=== PATIENT | female | born 1965 | race Caucasian/White ===

== ENCOUNTER 2017-05-28 10:49 | Inpatient (IN) | payer MEDICARE, BC ==
--- NOTE | 2017-05-28 14:04 | ED ---
General Adult HPI - General Chief complaint: Back Pain/Injury Stated complaint: Pain all over Time Seen by Provider: 05/28/17 13:36 Source: patient, RN notes reviewed Mode of arrival: wheelchair Limitations: no limitations - History of Present Illness Initial comments: This is a 51-year-old female who presents to the emergency department with chief complaint of "all over pain." Patient has an extensive medical history with generalized chronic pain. Patient is seen by family doctor Dr. Gibbs. Patient was taking methadone and [place] and was recently taken off of these medications. She reports an increase of pain since stopping the methadone approximately one month ago. Patient complains of generalized all over pain, but states her legs are the worst and she has difficulty walking. She also complains of a headache for the last 3 days. Patient was given a prescription for tramadol when she followed up with her primary care provider a few days ago. Patient states that this is not working for her. states that he feels his needs to be hospitalized to get to the bottom of what's causing her pain and that he would like a referral to pain management clinic. Denies shortness of breath, nausea or vomiting, diarrhea or constipation. Patient began to complain of intermittent chest pain for the last couple of days. She states it is sharp and on the left side of her chest. Patient states she is nervous she is having another [place]. - Related Data Home Medications Medication Instructions Recorded Confirmed ALPRAZolam [Xanax] 0.5 mg PO BID 12/28/13 05/28/17 Allopurinol [Zyloprim] 300 mg PO DAILY 12/28/13 05/28/17 Aspirin 81 mg PO DAILY 12/28/13 05/28/17 Cyclobenzaprine [Flexeril] 10 mg PO HS 12/28/13 05/28/17 Digoxin [Lanoxin] 125 mcg PO DAILY 12/28/13 05/28/17 INSULIN LISPRO (humaLOG) [humaLOG] 30 units SQ AC-TID PRN 12/28/13 05/28/17 Insulin Glargine [Lantus] 60 unit SQ HS 12/28/13 05/28/17 Magnesium Chloride [Slow-Mag] 64 mg PO BID 12/28/13 05/28/17 Pregabalin [Lyrica] 300 mg PO BID 12/28/13 05/28/17 traZODone HCL [Desyrel] 100 mg PO HS 12/28/13 05/28/17 Carvedilol [Coreg] 12.5 mg PO BID 01/22/14 05/28/17 Allopurinol [Zyloprim] 300 mg PO DAILY 05/28/17 05/28/17 Bumetanide [BUMEX] 3 mg PO BID 05/28/17 05/28/17 DULoxetine HCL [Cymbalta] 60 mg PO DAILY 05/28/17 05/28/17 Hydrochlorothiazide [Hydrodiuril] 25 mg PO DAILY 05/28/17 05/28/17 Ondansetron HCl [Zofran] 8 mg PO BID PRN 05/28/17 05/28/17 Potassium Chloride [K-Tab ER] 10 meq PO BID 05/28/17 05/28/17 Spironolactone [Aldactone] 25 mg PO DAILY 05/28/17 05/28/17 glyBURIDE/METFORMIN HCL 1 each PO DAILY 05/28/17 05/28/17 [Glucovance 5-500 mg Tablet] Previous Rx's Medication Instructions Recorded Warfarin [Coumadin] 5 mg PO DAILY@1800 #7 tab 06/29/14 Allergies Allergy/AdvReac Type Severity Reaction Status Date / Time atorvastatin calcium Allergy Unknown Verified 05/28/17 10:56 [From Lipitor] baclofen Allergy Unknown Verified 05/28/17 10:56 gentamicin [Gentamicin] Allergy Unknown Verified 05/28/17 10:56 Review of Systems ROS Statement: Those systems with pertinent positive or pertinent negative responses have been documented in the HPI. ROS Other: All systems not noted in ROS Statement are negative. Past Medical History Past Medical History: Atrial Fibrillation, Asthma, Coronary Artery Disease (CAD) , Heart Failure, CVA/TIA, Diabetes Mellitus, Fibromyalgia, GI Bleed, Hyperlipidemia, Hypertension, Myocardial Infarction (MO), Osteoarthritis (OA), Pneumonia, Renal Disease, Respiratory Disorder Additional Past Medical History / Comment(s): Peripheral neuropathy, chronic pain Last Myocardial Infarction Date:: 2006 History of Any Multi-Drug Resistant Organisms: None Reported, C-DIFF Date of last positivie culture/infection: 2011 MDRO Source:: STOOL Past Surgical History: AICD, Cardiac Valve Replacement, Coronary Bypass/CABG, Heart Catheterization With Stent, Pacemaker Additional Past Surgical History / Comment(s): Gastric stimulator placed Past Anesthesia/Blood Transfusion Reactions: Previous Problems w/ Anesthesia Additional Past Anesthesia/Blood Transfusion Reaction / Comment(s): HEART ACTED UP Date of Last Stent Placement:: 2006 Type of Cardiac Device: Permanent Pacemaker, AICD Device Placement Date:: 2013 Past Psychological History: Anxiety, Depression Smoking Status: Never smoker Past Alcohol Use History: None Reported Past Drug Use History: None Reported General Exam - General Exam Comments Initial Comments: General: Awake and alert, well-developed; in no apparent distress. Moaning and groaning throughout examination. Uncooperative. HEENT: Head atraumatic, normocephalic. Pupils are equal, round and reactive to light. Extraocular movements intact. Oropharynx moist without erythema or exudate. Neck: Supple. Normal ROM. Cardiovascular: Regular rate and rhythm. No murmurs, rubs or gallops. Chest symmetrical. Respiratory: Lungs clear to auscultation bilaterally. No wheezes, rales or rhonchi. Normal respiratory effort with no use of accessory muscles. Abdomen: Soft, non-distended. Tenderness on palpation of the epigastric region. No rigidity, rebound or guarding. Normal bowel sounds in all 4 quadrants. Well-healed scar noted for gastric stimulator. Musculoskeletal: Normal active range of motion of bilateral upper and lower extremities. Skin: [place], warm and dry without rashes or lesions. Neurological: Alert and oriented x3. CN II-XII grossly intact. Speech is fluent and answers are appropriate. No focal neuro deficits. Limitations: no limitations Course Vital Signs 05/28/17 05/28/17 05/28/17 10:51 15:00 15:58 Temperature 98.5 F Pulse Rate 89 89 89 Respiratory 16 20 20 Rate Blood Pressure 118/70 138/56 121/69 O2 Sat by Pulse 95 95 96 Oximetry EKG Findings - EKG Comments: EKG Findings:: EKG at 14:10:25. Electronic ventricular pacemaker. Ventricular rate 92 bpm, DC interval 212, QRS duration 122, QT/QTC 396/489. Medical Decision Making - Medical Decision Making This is a 51-year-old female who presented to the emergency department with chief complaint of chronic generalized pain. Patient recently came off of methadone and her primary care provider is no longer prescribe any narcotics. I explained to patient that we do not prescribe narcotics for chronic pain in the emergency department. I educated family that they are to receive a referral to pain management from their primary care provider. Upon discussing this, patient complained of intermittent chest pains. An EKG was obtained, however unable to interpret due to pacemaker. A full cardiac workup was performed. Patient has acute kidney injury and an elevated troponin at 0.129. BNP was within normal limits. Chest x-ray revealed mild central venous congestion. Patient will be admitted to the hospital under Dr. Norton with diagnoses of elevated troponin, chest pain and acute kidney injury. Patient was made aware of this and she is in agreement. All questions were answered. - Lab Data Result diagrams: 05/28/17 14:51 05/28/17 14:51 Lab Results 05/28/17 05/28/17 05/28/17 Range/Units 14:51 14:51 14:51 WBC 11.7 H (3.8-10.6) k/uL RBC 3.57 L (3.80-5.40) m/uL Hgb 11.0 L (11.4-16.0) gm/dL Hct 33.4 L (34.0-46.0) % MCV 93.7 (80.0-100.0) fL MCH 30.9 (25.0-35.0) pg MCHC 33.0 (31.0-37.0) g/dL RDW 20.4 H (11.5-15.5) % Plt Count 174 (150-450) k/uL Neutrophils % 76 % Lymphocytes % 10 % Monocytes % 5 % Eosinophils % 4 % Basophils % 1 % Neutrophils # 8.9 H (1.3-7.7) k/uL Lymphocytes # 1.2 (1.0-4.8) k/uL Monocytes # 0.6 (0-1.0) k/uL Eosinophils # 0.4 (0-0.7) k/uL Basophils # 0.1 (0-0.2) k/uL Poikilocytosis Slight Anisocytosis Moderate Macrocytosis Slight PT (9.0-12.0) sec INR (<1.2) APTT (22.0-30.0) sec Sodium 139 (137-145) mmol/L Potassium 3.7 (3.5-5.1) mmol/L Chloride 93 L (98-107) mmol/L Carbon Dioxide 28 (22-30) mmol/L Anion Gap 18 mmol/L BUN 67 H (7-17) mg/dL Creatinine 1.60 H (0.52-1.04) mg/dL Est GFR (MDRD) Af Amer 41 (>60 ml/min/1.73 sqM) Est GFR (MDRD) Non-Af 34 (>60 ml/min/1.73 sqM) Glucose 162 H (74-99) mg/dL Calcium 9.6 (8.4-10.2) mg/dL Magnesium 1.3 L (1.6-2.3) mg/dL Total Bilirubin 0.9 (0.2-1.3) mg/dL AST 53 H (14-36) U/L ALT 82 H (9-52) U/L Alkaline Phosphatase 106 (38-126) U/L Total Creatine Kinase 36 (30-135) U/L CK-MB (CK-2) 1.5 (0.0-2.4) ng/mL CK-MB (CK-2) Rel Index 4.2 Troponin I 0.129 H* (0.000-0.034) ng/mL NT-Pro-B Natriuret Pep pg/mL Total Protein 7.8 (6.3-8.2) g/dL Albumin 4.5 (3.5-5.0) g/dL 05/28/17 05/28/17 Range/Units 14:51 14:51 WBC (3.8-10.6) k/uL RBC (3.80-5.40) m/uL Hgb (11.4-16.0) gm/dL Hct (34.0-46.0) % MCV (80.0-100.0) fL MCH (25.0-35.0) pg MCHC (31.0-37.0) g/dL RDW (11.5-15.5) % Plt Count (150-450) k/uL Neutrophils % % Lymphocytes % % Monocytes % % Eosinophils % % Basophils % % Neutrophils # (1.3-7.7) k/uL Lymphocytes # (1.0-4.8) k/uL Monocytes # (0-1.0) k/uL Eosinophils # (0-0.7) k/uL Basophils # (0-0.2) k/uL Poikilocytosis Anisocytosis Macrocytosis PT 11.1 (9.0-12.0) sec INR 1.2 H (<1.2) APTT 25.1 (22.0-30.0) sec Sodium (137-145) mmol/L Potassium (3.5-5.1) mmol/L Chloride (98-107) mmol/L Carbon Dioxide (22-30) mmol/L Anion Gap mmol/L BUN (7-17) mg/dL Creatinine (0.52-1.04) mg/dL Est GFR (MDRD) Af Amer (>60 ml/min/1.73 sqM) Est GFR (MDRD) Non-Af (>60 ml/min/1.73 sqM) Glucose (74-99) mg/dL Calcium (8.4-10.2) mg/dL Magnesium (1.6-2.3) mg/dL Total Bilirubin (0.2-1.3) mg/dL AST (14-36) U/L ALT (9-52) U/L Alkaline Phosphatase (38-126) U/L Total Creatine Kinase (30-135) U/L CK-MB (CK-2) (0.0-2.4) ng/mL CK-MB (CK-2) Rel Index Troponin I (0.000-0.034) ng/mL NT-Pro-B Natriuret Pep 1930 pg/mL Total Protein (6.3-8.2) g/dL Albumin (3.5-5.0) g/dL - Radiology Data Radiology results: report reviewed Chest x-ray findings: The lungs are clear and there is no pneumothorax. Cardiac device and postsurgical changes are noted and there is mild central interstitial prominence. Tiny left pleural effusion is noted. Impression: Correlate for mild central venous congestion and tiny left pleural effusion. Disposition Clinical Impression: Elevated troponin, Chest pain, Chronic pain, Acute kidney injury Disposition: ADMITTED IP TO THIS [facility] Condition: Stable Referrals: Uvaldo Gibbs MD [Primary Care Provider] - 1-2 days Time of Disposition: 17:04
[2017-05-28] MEDS ORDERED: HYDROmorphone 1 MG/ML 1 ML SYRINGE IVP STA ×2 (14:25→18:09)
[2017-05-28 15:08] LABS: Anisocytosis Moderate; Basophils # (A) 0.1 k/uL (0-0.2); Basophils % (A) 1 %; Eosinophils # (A) 0.4 k/uL (0-0.7); Eosinophils % (A) 4 %; HCT 33.4 % (34.0-46.0); Lymphocytes # (A) 1.2 k/uL (1.0-4.8); Lymphocytes % (A) 10 %; MCH 30.9 pg (25.0-35.0); MCV 93.7 fL (80.0-100.0); Macrocytosis Slight; Mean Platelet Volume 9.4; Monocytes # (A) 0.6 k/uL (0-1.0); Monocytes % (A) 5 %; Neutrophils # (A) 8.9 k/uL (1.3-7.7); Neutrophils % (A) 76 %; Platelet Count 174 k/uL (150-450); Poikilocytosis Slight; RBC 3.57 m/uL (3.80-5.40); RDW 20.4 % (11.5-15.5); WBC 11.7 k/uL (3.8-10.6)
--- NOTE | 2017-05-28 15:18 | XR ---
EXAMINATION TYPE: XR chest 2V DATE OF EXAM: 05/28/2017 COMPARISON: 06/29/2014 TECHNIQUE: PA and lateral views submitted. HISTORY: Chest congestion FINDINGS: The lungs are clear and there is no pneumothorax. Cardiac device and postsurgical changes are noted and there is mild central interstitial prominence. Tiny left pleural effusion noted. IMPRESSION: 1. Correlate for mild central venous congestion and tiny left pleural effusion..
[2017-05-28 15:20] LABS: Albumin 4.5 g/dL (3.5-5.0); Calcium 9.6 mg/dL (8.4-10.2); Magnesium 1.3 mg/dL (1.6-2.3); Potassium 3.7 mmol/L (3.5-5.1); Total Bilirubin 0.9 mg/dL (0.2-1.3); Total Protein 7.8 g/dL (6.3-8.2)
[2017-05-28 15:40] LABS: Creatine Kinase MB 1.5 ng/mL (0.0-2.4); INR 1.2 (<1.2); Partial Thromboplastin Time 25.1 sec (22.0-30.0); Prothrombin Time 11.1 sec (9.0-12.0); Troponin I 0.129 ng/mL (0.000-0.034)
[2017-05-28] MEDS ORDERED: NITROGLYCERIN SL TABS 0.4 MG TAB SUBLINGUAL PRN ×2 (16:55→21:49)
[2017-05-28] MEDS ORDERED: SPIRONOLACTONE 25 MG TAB PO STA (18:02)
[2017-05-28] MEDS ORDERED: PANTOPRAZOLE 40 MG TABLET PO STA (18:03)
[2017-05-28 20:27] LABS: Glucose,Whole Blood 182 mg/dL (75-99)
[2017-05-28] MEDS ORDERED: BUMETANIDE 1 MG TAB PO SCH (21:00)
[2017-05-28] MEDS ORDERED: INSULIN LISPRO 30 UNIT SQ PRN (21:49)
[2017-05-28] MEDS ORDERED: INSULIN DETEMIR 100 UNIT/ML 10 ML VIAL SQ SCH ×2 (22:00→22:10)
[2017-05-28] MEDS ORDERED: SODIUM CHLORIDE 0.9% 1,000 ML IV SCH (22:00)
[2017-05-28] MEDS ORDERED: WARFARIN 2.5 MG TAB PO SCH (22:00)
[2017-05-28] MEDS ORDERED: traZODone HCL 100 MG TAB PO SCH (22:00)
[2017-05-28] MEDS ORDERED: PREGABALIN 100 MG CAP PO SCH (22:00)
[2017-05-28] MEDS ORDERED: CYCLOBENZAPRINE 10 MG TAB PO SCH (22:00)
[2017-05-28 22:19] LABS: Creatine Kinase MB 1.3 ng/mL (0.0-2.4)
[2017-05-28 22:21] LABS: Troponin I 0.12 ng/mL (0.000-0.034)
[2017-05-28 22:51] LABS: Glucose,Whole Blood 154 mg/dL (75-99)
[2017-05-28] MEDS: ALPRAZolam 0.5 MG TAB PO SCH (22:56)
--- NOTE | 2017-05-28 22:59 | HP ---
HISTORY AND PHYSICAL DATE OF ADMISSION: 05/28/2017. PRESENTING COMPLAINT: Chest pain. HISTORY OF PRESENTING COMPLAINT: Pleasant 51-year-old patient of Dr. Benson, with an extensive medical history. Patient's chronic stable medical conditions include diabetes mellitus type 2, peripheral neuropathy, chronic pain syndrome, gastric stimulator, permanent pacemaker, AICD, atrial fibrillation for which she is on Coumadin, congestive heart failure, hypertension, hyperlipidemia, coronary artery disease. For chronic pain, the patient had been on methadone and [place] which were stopped 6 days ago by family doctor, Dr. Gibbs. The patient has been aching all over the body. The patient, for 2 days, has been having sharp central chest pain, not related to exertion. Some shortness of breath and some dizziness. The pain does not does not radiate. Appetite had not been good. Patient is also having nausea. She was concerned about a cardiac cause, hence she presented to the ER. is at the bedside. The patient wanted IV Dilaudid. REVIEW OF SYSTEMS: CONSTITUTIONAL: Tired. HEENT: none. RESPIRATORY: As above. CARDIOVASCULAR: As above. GASTROINTESTINAL: None. GENITOURINARY: None. MUSCULOSKELETAL: Aches and pains diffusely. DERMATOLOGIC/HEMATOLOGIC/LYMPHATIC: None. PSYCHIATRY: Very anxious. NEUROLOGIC: Some numbness and tingling in and feet. PAST MEDICAL HISTORY: Atrial fibrillation, coronary artery disease, congestive heart failure, stroke, diabetes, fibromyalgia, GI bleed, hypertension, hyperlipidemia, osteoarthritis, chronic kidney disease, peripheral neuropathy, C diff. PAST SURGICAL HISTORY: AICD, cardiac valve replacement, coronary bypass, cardiac cath with stent, pacemaker, gastric stimulator, permanent pacemaker with AICD. PSYCH HISTORY: Anxiety and depression. SOCIAL HISTORY: Does not smoke or drink alcohol. . FAMILY HISTORY: Reviewed, not related to current presentation. HOME MEDICATIONS: 1. Desyrel 100 mg at bedtime. 2. Coumadin 2.5 mg Saturday, Saturday, , Saturday. 3. Aldactone 25 mg at bedtime. 4. Lyrica 200 mg at bedtime. 5. Melatonin 30 mg at bedtime. 6. Lantus 60 units subcu at bedtime. 7. Flexeril 10 mg p.o. at bedtime. 8. Coumadin 5 mg Saturday, Saturday and Saturday. 9. Reglan 10 mg p.o. daily p.r.n. 10.Nitrostat 0.4 sublingual every 5 p.r.n. 11.Glucophage 5/100 one tablet p.o. daily. 12.Lyrica 300 mg p.o. daily. 13.Potassium 10 mEq p.o. b.i.d. 14.Zofran 8 mg p.o. b.i.d. p.r.n. 15.Humalog 30 units subcu with meals t.i.d. 16.Hydrochlorothiazide 25 mg p.o. daily. 17.Digoxin 125 mcg p.o. daily. 18.Cymbalta 60 mg p.o. daily. 19.Bumex 6 mg p.o. b.i.d. 20.Aspirin 81 mg p.o. daily. 21.allopurinol 300 mg p.o. daily. 22.Xanax 0.5 mg p.o. b.i.d. ALLERGIES: Lipitor, baclofen, gentamicin. PHYSICAL EXAMINATION: Temperature 97.6, pulse 97, respiratory 20, blood pressure 120/65, pulse ox 97% on 2 L. GENERAL APPEARANCE: Well built, BMI 33.8, sitting up, anxious-appearing. HEENT: Conjunctivae are normal. Oral cavity normal. NECK: JVD not raised. Mass not palpable. RESPIRATORY: Effort normal. Lungs are clear. CARDIOVASCULAR: First and second sounds normal. No edema. ABDOMEN: Soft, nontender. Liver and spleen not palpable. LYMPHATIC: No lymph palpable in the neck, axillae or groin. PSYCHIATRY: Alert and oriented x3. Mood and affect anxious-appearing. NEUROLOGIC: Pupils equal. Cranial nerves grossly intact. Power and sensation grossly intact. INVESTIGATIONS: White count 11.7, hemoglobin 11.0, platelets 174,000, potassium 3.7, INR 1.2, BUN 67, creatinine 1.60, troponin 0.129. ProBNP 1930. The patient's BUN and creatinine, last in the hospital record were 29 and 0.99 back in 2015. ASSESSMENT: 1. Possible unstable angina in a patient with known coronary artery disease. Patient's 1st set of troponin is positive. Note this is in the setting of renal failure. 2. Chronic kidney disease, probably diabetic nephropathy and hypertensive nephrosclerosis. Cannot rule out an acute component. The patient is also on quite a bit of diuretics. 3. Chronic congestive heart failure from ischemic cardiomyopathy, ejection fraction not known. 4. Diabetes mellitus type 2, chronically on insulin causing peripheral neuropathy. 5. Chronic pain syndrome, diffuse. 6. Gastric stimulator. 7. Permanent pacemaker with AICD. 8. Persistent atrial fibrillation with paced rhythm, chronically on Coumadin. 9. Essential hypertension. 10.Hyperlipidemia. 11.Coronary artery disease, prior history of stent. 12.Anxiety, depression, not otherwise specified. PLAN: Home medications are resumed. Will temporarily hold off patient's diuretics and gently hydrate the patient. We will do a renal ultrasound. Order a 2-D echocardiogram. Both cardiology and Nephrology will be consulted. We will consult Dr. Kunz from Pain Management. In the meantime, patient will be prescribed [place]. I did talk at length to the patient and the importance of not using excessive pain medications for chronic conditions, especially in the setting of renal failure. The patient's fluid status will be evaluated in the morning. The patient has not been eating or drinking for last 2 days is probably also contributing to her being dry. The patient is on Coumadin. The Coumadin will be held until patient is seen by Cardiology. MMODL / IJN: [id number] /
[2017-05-28] MEDS ORDERED: Magnesium Replacement Protocol 1 EACH MISC MISCELLANE PRN (23:41)
[2017-05-28] MEDS: HYDROcodone/APAP 5-325MG 1 EACH TAB PO PRN (23:51)
[2017-05-29] MEDS: MAGNESIUM SULFATE-D5W PMX 1 GM in DEXTROSE/WATER 1 100ML.BAG IVPB SCH ×3 (00:53→06:42)
[2017-05-29] MEDS: CARVEDILOL 12.5 MG TAB PO SCH ×3 (00:54→17:37)
[2017-05-29 03:43] LABS: Calcium 10.1 mg/dL (8.4-10.2); Magnesium 1.9 mg/dL (1.6-2.3); Potassium 3.4 mmol/L (3.5-5.1)
[2017-05-29 03:54] LABS: Creatine Kinase MB 1.2 ng/mL (0.0-2.4)
[2017-05-29 04:02] LABS: Troponin I 0.105 ng/mL (0.000-0.034)
[2017-05-29] MEDS: HYDROcodone/APAP 5-325MG 1 EACH TAB PO PRN ×3 (04:12→12:18)
[2017-05-29 05:26] VITALS: BMI 32.6
[2017-05-29 05:50] LABS: Glucose,Whole Blood 171 mg/dL (75-99)
[2017-05-29] MEDS: ONDANSETRON 4 MG/2 ML VIAL IVP PRN ×2 (06:47→17:42)
[2017-05-29] MEDS ORDERED: glipiZIDE 10 MG TAB PO SCH (07:30)
[2017-05-29] MEDS ORDERED: metFORMIN 500 MG TAB PO SCH (07:30)
[2017-05-29] MEDS: ALPRAZolam 0.5 MG TAB PO SCH (08:12)
--- NOTE | 2017-05-29 08:59 | P.CRDCN ---
History of Present Illness Consult date: 05/29/17 Requesting physician: Bryan Norton Reason for Consult (text): Abnormal troponin Chief complaint: Generalized body aches and pains History of present illness: This is a 51-year-old female with history of severe ischemic cardiomyopathy status post AICD implantation, coronary artery disease with prior LAD stenting, prior mitral valve repair and resection of large aneurysm, hyperlipidemia, hypertension, diabetes, she is a nonsmoker. Patient has an extensive history of generalized chronic pain, she was taking methadone and [place] which was recently discontinued, she states she went through withdrawal for a couple of weeks, and started to develop generalized pain which started in her lower back and radiated through the entire body. Prior to her admission here, patient was given a prescription for tramadol which she states did nothing. Patient denies any overt chest discomfort. Asked x-ray on arrival revealed mild central venous congestion and a tiny left pleural effusion. EKG shows a V paced rhythm. Blood pressure 136/70 with a heart rate in the 80s, 96 % on 3 L. White blood cell count 11.7, hemoglobin 11, platelet count 174. Sodium 136, potassium 3.4, chloride 90, CO2 27. BUN 72, creatinine 1.5.Mag 1.3 on admission, 1.9 this morning. Ast 53. Alt 82. Troponins 0.12, 0.12, 0.11. BNP 1930. Triglycerides 1493, cholesterol 269, HDL 31. She has been on multiple statins, has been unable to take them because of muscle aching. At time of my examination this morning, patient continues to complain of generalized pain from head to toe, complaints of mild nausea. No chest pain. Cardiology consultation was requested because of abnormal troponin. Past Medical History Past Medical History: Atrial Fibrillation, Asthma, Coronary Artery Disease (CAD) , Chest Pain / Angina, Heart Failure, CVA/TIA, Diabetes Mellitus, Fibromyalgia, GI Bleed, Hyperlipidemia, Hypertension, Myocardial Infarction ([place]), Osteoarthritis (OA), Pneumonia, Renal Disease, Respiratory Disorder, Syncope Additional Past Medical History / Comment(s): Peripheral neuropathy, chronic pain, pt. wears home O2 as needed, pt. reports having syncopal episodes in the past secondary to her pacemaker malfunctioning Last Myocardial Infarction Date:: 2006 History of Any Multi-Drug Resistant Organisms: C-DIFF Date of last positivie culture/infection: 2012 MDRO Source:: STOOL Past Surgical History: AICD, Cardiac Valve Replacement, Coronary Bypass/CABG, Heart Catheterization With Stent, Pacemaker Additional Past Surgical History / Comment(s): Gastric stimulator placed, pt. states it was replaced about 2 weeks ago Past Anesthesia/Blood Transfusion Reactions: Previous Problems w/ Anesthesia Additional Past Anesthesia/Blood Transfusion Reaction / Comment(s): pt. states she "had a heart attack>" after receiving anesethia Date of Last Stent Placement:: 2006 Type of Cardiac Device: Permanent Pacemaker, AICD Device Placement Date:: 2013 Past Psychological History: Anxiety, Depression Smoking Status: Never smoker Past Alcohol Use History: None Reported Past Drug Use History: None Reported Medications and Allergies Home Medications Medication Instructions Recorded Confirmed Type ALPRAZolam [Xanax] 0.5 mg PO BID 12/28/13 05/28/17 History Aspirin 81 mg PO DAILY 12/28/13 05/28/17 History Cyclobenzaprine [Flexeril] 10 mg PO HS 12/28/13 05/28/17 History Digoxin [Lanoxin] 125 mcg PO DAILY 12/28/13 05/28/17 History INSULIN LISPRO (humaLOG) [humaLOG] 30 units SQ AC-TID PRN 12/28/13 05/28/17 History Insulin Glargine [Lantus] 60 unit SQ HS 12/28/13 05/28/17 History Pregabalin [Lyrica] 300 mg PO DAILY 12/28/13 05/28/17 History traZODone HCL [Desyrel] 100 mg PO HS 12/28/13 05/28/17 History Allopurinol [Zyloprim] 300 mg PO DAILY 05/28/17 05/28/17 History Bumetanide [BUMEX] 6 mg PO BID 05/28/17 05/28/17 History Carvedilol [Coreg] 12.5 mg PO BID 05/28/17 05/28/17 History DULoxetine HCL [Cymbalta] 60 mg PO DAILY 05/28/17 05/28/17 History Hydrochlorothiazide [Hydrodiuril] 25 mg PO DAILY 05/28/17 05/28/17 History Melatonin 30 mg PO HS 05/28/17 05/28/17 History Metoclopramide [Reglan] 10 mg PO DAILY PRN 05/28/17 05/28/17 History Nitroglycerin Sl Tabs [Nitrostat] 0.4 mg SUBLINGUAL Q5M PRN 05/28/17 05/28/17 History Ondansetron HCl [Zofran] 8 mg PO BID PRN 05/28/17 05/28/17 History Potassium Chloride [K-Tab ER] 10 meq PO BID 05/28/17 05/28/17 History Pregabalin [Lyrica] 200 mg PO HS 05/28/17 05/28/17 History Spironolactone [Aldactone] 25 mg PO HS 05/28/17 05/28/17 History Warfarin [Coumadin] 2.5 mg PO SUTUTHSA 05/28/17 05/28/17 History Warfarin [Coumadin] 5 mg PO MOWEFR 05/28/17 05/28/17 History glyBURIDE/METFORMIN HCL 1 tab PO DAILY 05/28/17 05/28/17 History [Glucovance 5-500 mg Tablet] Allergies Allergy/AdvReac Type Severity Reaction Status Date / Time atorvastatin calcium Allergy Unknown Verified 05/28/17 17:58 [From Lipitor] baclofen Allergy Unknown Verified 05/28/17 17:58 gentamicin [Gentamicin] Allergy Unknown Verified 05/28/17 17:58 Physical Exam Vitals: Vital Signs Temp Pulse Pulse Resp BP BP Pulse Ox 05/29/17 06:00 87 16 05/29/17 01:30 87 16 05/29/17 01:20 97.9 F 87 16 137/75 96 05/28/17 21:30 96.1 F L 91 16 128/65 91 L 05/28/17 20:36 97.6 F 77 20 124/65 97 05/28/17 19:00 98.7 F 91 20 123/51 99 05/28/17 17:57 90 18 121/69 95 05/28/17 15:58 89 20 121/69 96 05/28/17 15:00 89 20 138/56 95 05/28/17 10:51 98.5 F 89 16 118/70 95 Intake and Output 05/28/17 05/29/17 05/29/17 22:59 06:59 14:59 Intake Total 340 Output Total 600 Balance -260 Intake: Intake, IV Titration 100 Amount Magnesium Sulfate-D5w Pmx 100 1 gm In Dextrose/Water 1 100ml.bag @ 100 mls/hr IVPB Q1H [facility] Rx#: [id number] Oral 240 Output: Urine 600 Other: Voiding Method Toilet Toilet Weight 86.3 kg 86.3 kg PHYSICAL EXAMINATION: HEENT: 51-year-old female, alert, complaining of generalized body aches and pains HEART EXAMINATION: Heart S1, S2 systolic murmur heard CHEST EXAMINATION: Lungs are clear to auscultation and precussion. No chest wall tenderness is noted on palpation or with deep breathing. ABDOMEN: Soft, generalized tenderness . Bowel sounds are heard. No organomegaly noted. EXTREMITIES: 2+ peripheral pulses with trace evidence of peripheral edema and no calf tenderness noted. NEUROLOGIC patient is awake, alert and oriented -3. . Results 05/28/17 14:51 05/29/17 03:00 Cardiac Enzymes 05/28/17 05/28/17 05/28/17 Range/Units 14:51 14:51 21:19 AST 53 H (14-36) U/L CK-MB (CK-2) 1.5 1.3 (0.0-2.4) ng/mL Troponin I 0.129 H* 0.120 H* (0.000-0.034) ng/mL 05/29/17 Range/Units 03:00 AST (14-36) U/L CK-MB (CK-2) 1.2 (0.0-2.4) ng/mL Troponin I 0.105 H* (0.000-0.034) ng/mL Coagulation 05/28/17 Range/Units 14:51 PT 11.1 (9.0-12.0) sec APTT 25.1 (22.0-30.0) sec Lipids 05/29/17 Range/Units 03:00 Triglycerides 1493 H (<150) mg/dL Cholesterol 269 H (<200) mg/dL HDL Cholesterol 31 L (40-60) mg/dL CBC 05/28/17 Range/Units 14:51 WBC 11.7 H (3.8-10.6) k/uL RBC 3.57 L (3.80-5.40) m/uL Hgb 11.0 L (11.4-16.0) gm/dL Hct 33.4 L (34.0-46.0) % Plt Count 174 (150-450) k/uL Comprehensive Metabolic Panel 05/28/17 05/29/17 Range/Units 14:51 03:00 Sodium 139 136 L (137-145) mmol/L Potassium 3.7 3.4 L (3.5-5.1) mmol/L Chloride 93 L 90 L (98-107) mmol/L Carbon Dioxide 28 27 (22-30) mmol/L BUN 67 H 72 H (7-17) mg/dL Creatinine 1.60 H 1.50 H (0.52-1.04) mg/dL Glucose 162 H 187 H (74-99) mg/dL Calcium 9.6 10.1 (8.4-10.2) mg/dL AST 53 H (14-36) U/L ALT 82 H (9-52) U/L Alkaline Phosphatase 106 (38-126) U/L Total Protein 7.8 (6.3-8.2) g/dL Albumin 4.5 (3.5-5.0) g/dL Current Medications Generic Name Dose Route Start Last Admin Trade Name Freq PRN Reason Stop Dose Admin Hydrocodone Bitart/Acetaminophen 1 each 05/28/17 23:08 05/29/17 08:07 [place] 5-325 PO 1 each Q4HR PRN Administration Pain Alprazolam 0.5 mg 05/28/17 22:00 05/29/17 08:12 Xanax PO 0.5 mg BID CARIE Administration Aspirin 81 mg 05/29/17 09:00 05/29/17 08:09 Aspirin PO 81 mg DAILY CARIE Administration Carvedilol 12.5 mg 05/28/17 23:45 05/29/17 08:09 Coreg PO 12.5 mg AC-BID CARIE Administration Cyclobenzaprine HCl 10 mg 05/28/17 22:00 05/28/17 22:56 Flexeril PO 10 mg HS CARIE Administration Duloxetine HCl 60 mg 05/29/17 09:00 05/29/17 08:09 Cymbalta PO 60 mg DAILY CARIE Administration Glipizide 10 mg 05/29/17 07:30 05/29/17 08:09 Glucotrol PO 10 mg W/BRKFST CARIE Administration Sodium Chloride 1,000 mls @ 50 mls/hr 05/28/17 22:00 05/28/17 23:49 Saline 0.9% IV Not Given .Q20H CARIE Insulin Detemir 60 unit 05/28/17 22:10 Levemir SQ HS CARIE Melatonin 20 mg 05/29/17 21:00 Melatonin PO HS CARIE Metformin HCl 500 mg 05/29/17 07:30 05/29/17 08:09 Glucophage PO 500 mg W/BRKFST CARIE Administration Miscellaneous Information 1 each 05/28/17 23:41 Magnesium Per Protocol MISCELLANE DAILY PRN Per Protocol Protocol Nitroglycerin 0.4 mg 05/28/17 16:55 05/28/17 17:56 Nitrostat SUBLINGUAL 0.4 mg Q5M PRN Administration Chest Pain Nitroglycerin 0.4 mg 05/28/17 21:49 Nitrostat SUBLINGUAL Q5M PRN Chest Pain Non-Formulary Medication 30 units 05/28/17 21:49 Insulin Lispro (Humalog) SQ AC-TID PRN hyperglycemia Ondansetron HCl 4 mg 05/29/17 00:08 05/29/17 06:47 Zofran IVP 4 mg Q6HR PRN Administration Nausea And Vomiting Potassium Chloride 10 meq 05/29/17 09:00 05/29/17 08:09 K-Dur 10 PO 10 meq BID CARIE Administration Pregabalin 200 mg 05/28/17 22:00 05/28/17 22:56 Lyrica PO 200 mg HS CARIE Administration Pregabalin 300 mg 05/29/17 09:00 05/29/17 08:12 Lyrica PO 300 mg DAILY [facility]IE Administration Trazodone HCl 100 mg 05/28/17 22:00 05/28/17 23:51 Desyrel PO 100 mg HS CARIE Administration Intake and Output 05/28/17 05/29/17 05/29/17 22:59 06:59 14:59 Intake Total 340 Output Total 600 Balance -260 Intake: Intake, IV Titration 100 Amount Magnesium Sulfate-D5w Pmx 100 1 gm In Dextrose/Water 1 100ml.bag @ 100 mls/hr IVPB Q1H [facility] Rx#: [id number] Oral 240 Output: Urine 600 Other: Voiding Method Toilet Toilet Weight 86.3 kg 86.3 kg 05/28/17 14:51 05/29/17 03:00 EKG Interpretations (text) EKG shows a ventricular paced rhythm Assessment and Plan Plan: Assessment and plan #1 symptoms of overall body aches and pains area patient has history of chronic pain, recently taken off methadone and [place]. #2 abnormal troponins, not consistent with acute coronary syndrome with no significant rise and fall. She denies any active chest pain. EKG shows a ventricular paced rhythm. #3 known history of coronary artery disease with prior LAD stenting in 2005 #4 ischemic cardiomyopathy with prior AICD #5 diabetes #6 hypertension #7 hyperlipidemia, intolerant to statins #8 acute on chronic renal insufficiency #9 and mildly abnormal liver enzymes,patient has been noted to have abnormal liver functions in the past. #10 fibromyalgia #11 peripheral neuropathy #12 mild congestive heart failure, systolic, acute on chronic. She denies any overt shortness of breath. #13 hypomagnesemia, replaced Plan Will obtain an echocardiogram with Doppler study. Continue baby aspirin, Coreg , and Aldactone. Further recommendations to follow. DNP note has been reviewed, I agree with a documented findings and plan of care. Patient was seen and examined.
[2017-05-29] MEDS ORDERED: BUMETANIDE 1 MG TAB PO SCH ×2 (09:00→10:30)
[2017-05-29] MEDS ORDERED: POTASSIUM CHLORIDE ER 10 MEQ TAB.ER.PRT PO SCH (09:00)
[2017-05-29] MEDS ORDERED: PREGABALIN 100 MG CAP PO SCH (09:00)
[2017-05-29] MEDS ORDERED: ASPIRIN 81 MG PO SCH (09:00)
[2017-05-29] MEDS ORDERED: DULoxetine HCL 60 MG CAPSULE.DR PO SCH (09:00)
[2017-05-29] MEDS: PANTOPRAZOLE 40 MG TABLET PO SCH ×2 (09:15→17:37)
--- NOTE | 2017-05-29 09:55 | US ---
EXAMINATION TYPE: US kidneys/renal and bladder DATE OF EXAM: 05/29/2017 COMPARISON: NONE CLINICAL HISTORY: renal failure. EXAM MEASUREMENTS: Right Kidney: 12.5 x 4.8x 5.6cm cm Left Kidney: 12.7 x 4.9 x 5.5cm cm Incidental finding of hepatosplenomegaly. Right Kidney: No hydronephrosis or masses seen Left Kidney: No hydronephrosis or masses seen Bladder: not fully distended, patient unable to tolerate any pressure here due to skin rash, not eval uated There is no evidence for hydronephrosis at this point in time. No nephrolithiasis is seen. No emily s are identified. The urinary bladder is anechoic. Bilateral ureteral jets are seen. IMPRESSION: Persistent splenomegaly. Otherwise unremarkable study.
[2017-05-29] MEDS ORDERED: POTASSIUM CHLORIDE ER 20 MEQ TAB.ER PO STA (10:06)
--- NOTE | 2017-05-29 10:16 | P.NPCON ---
History of Present Illness - Reason for Consult acute renal failure - History of Present Illness Reason for consultation: Acute kidney injury History of present illness: Patient is a 51-year-old female seen in renal consultation for acute kidney injury. Her creatinine 2015 was 1 and was 1.6 at the time of admission yesterday. It is a little improved to 1.5 today. Patient states her baseline creatinine is around 1.6. She presented to the hospital with generalized pain. Patient was recently taken off [place] and methadone and her pain has been worse since then. Currently she is getting [place] and feels better. She does admit to having an ejection fraction of less than 20%. She does have a history of defibrillator as well as a stent to the LAD. She is maintained on Bumex 6 mg twice daily along with Aldactone. She admits to good urine output. No hematuria or dysuria. Denies vomiting or diarrhea. Oral intake is fair. Hemodynamically she stable. No edema. Denies use of NSAIDs. She states her father was on dialysis but is not sure of the etiology. No fever or chills. Vital signs are stable. General: The patient appeared well nourished and normally developed. HEENT: Head exam is unremarkable. Neck is without jugular venous distension. LUNGS: Lungs are clear to auscultation and percussion. Breath sounds decreased. HEART: Rate and Rhythm are regular. First and second heart sounds normal. No murmurs, rubs or gallops. ABDOMEN: Abdominal exam reveals normal bowel sounds. Non-tender and non- distended. No evidence of peritonitis. EXTREMITITES: No clubbing, cyanosis, or edema. Past Medical History Past Medical History: Atrial Fibrillation, Asthma, Coronary Artery Disease (CAD) , Chest Pain / Angina, Heart Failure, CVA/TIA, Diabetes Mellitus, Fibromyalgia, GI Bleed, Hyperlipidemia, Hypertension, Myocardial Infarction ([place]), Osteoarthritis (OA), Pneumonia, Renal Disease, Respiratory Disorder, Syncope Additional Past Medical History / Comment(s): Peripheral neuropathy, chronic pain, pt. wears home O2 as needed, pt. reports having syncopal episodes in the past secondary to her pacemaker malfunctioning Last Myocardial Infarction Date:: 2006 History of Any Multi-Drug Resistant Organisms: C-DIFF Date of last positivie culture/infection: 2011 MDRO Source:: STOOL Past Surgical History: AICD, Cardiac Valve Replacement, Coronary Bypass/CABG, Heart Catheterization With Stent, Pacemaker Additional Past Surgical History / Comment(s): Gastric stimulator placed, pt. states it was replaced about 2 weeks ago Past Anesthesia/Blood Transfusion Reactions: Previous Problems w/ Anesthesia Additional Past Anesthesia/Blood Transfusion Reaction / Comment(s): pt. states she "had a heart attack>" after receiving anesethia Date of Last Stent Placement:: 2006 Type of Cardiac Device: Permanent Pacemaker, AICD Device Placement Date:: 2013 Past Psychological History: Anxiety, Depression Smoking Status: Never smoker Past Alcohol Use History: None Reported Past Drug Use History: None Reported Medications and Allergies Home Medications Medication Instructions Recorded Confirmed Type ALPRAZolam [Xanax] 0.5 mg PO BID 12/28/13 05/28/17 History Aspirin 81 mg PO DAILY 12/28/13 05/28/17 History Cyclobenzaprine [Flexeril] 10 mg PO HS 12/28/13 05/28/17 History Digoxin [Lanoxin] 125 mcg PO DAILY 12/28/13 05/28/17 History INSULIN LISPRO (humaLOG) [humaLOG] 30 units SQ AC-TID PRN 12/28/13 05/28/17 History Insulin Glargine [Lantus] 60 unit SQ HS 12/28/13 05/28/17 History Pregabalin [Lyrica] 300 mg PO DAILY 12/28/13 05/28/17 History traZODone HCL [Desyrel] 100 mg PO HS 12/28/13 05/28/17 History Allopurinol [Zyloprim] 300 mg PO DAILY 05/28/17 05/28/17 History Bumetanide [BUMEX] 6 mg PO BID 05/28/17 05/28/17 History Carvedilol [Coreg] 12.5 mg PO BID 05/28/17 05/28/17 History DULoxetine HCL [Cymbalta] 60 mg PO DAILY 05/28/17 05/28/17 History Hydrochlorothiazide [Hydrodiuril] 25 mg PO DAILY 05/28/17 05/28/17 History Melatonin 30 mg PO HS 05/28/17 05/28/17 History Metoclopramide [Reglan] 10 mg PO DAILY PRN 05/28/17 05/28/17 History Nitroglycerin Sl Tabs [Nitrostat] 0.4 mg SUBLINGUAL Q5M PRN 05/28/17 05/28/17 History Ondansetron HCl [Zofran] 8 mg PO BID PRN 05/28/17 05/28/17 History Potassium Chloride [K-Tab ER] 10 meq PO BID 05/28/17 05/28/17 History Pregabalin [Lyrica] 200 mg PO HS 05/28/17 05/28/17 History Spironolactone [Aldactone] 25 mg PO HS 05/28/17 05/28/17 History Warfarin [Coumadin] 2.5 mg PO SUTUTHSA 05/28/17 05/28/17 History Warfarin [Coumadin] 5 mg PO MOWEFR 05/28/17 05/28/17 History glyBURIDE/METFORMIN HCL 1 tab PO DAILY 05/28/17 05/28/17 History [Glucovance 5-500 mg Tablet] Allergies Allergy/AdvReac Type Severity Reaction Status Date / Time atorvastatin calcium Allergy Unknown Verified 05/28/17 17:58 [From Lipitor] baclofen Allergy Unknown Verified 05/28/17 17:58 gentamicin [Gentamicin] Allergy Unknown Verified 05/28/17 17:58 Physical Exam Vitals: Vital Signs Temp Pulse Pulse Resp BP BP Pulse Ox 05/29/17 06:00 87 16 05/29/17 01:30 87 16 05/29/17 01:20 97.9 F 87 16 137/75 96 05/28/17 21:30 96.1 F L 91 16 128/65 91 L 05/28/17 20:36 97.6 F 77 20 124/65 97 05/28/17 19:00 98.7 F 91 20 123/51 99 05/28/17 17:57 90 18 121/69 95 05/28/17 15:58 89 20 121/69 96 05/28/17 15:00 89 20 138/56 95 05/28/17 10:51 98.5 F 89 16 118/70 95 Intake and Output 05/28/17 05/29/17 05/29/17 22:59 06:59 14:59 Intake Total 340 Output Total 600 1000 Balance -260 -1000 Intake: Intake, IV Titration 100 Amount Magnesium Sulfate-D5w Pmx 100 1 gm In Dextrose/Water 1 100ml.bag @ 100 mls/hr IVPB Q1H [facility] Rx#: [id number] Oral 240 Output: Urine 600 1000 Other: Voiding Method Toilet Toilet Weight 86.3 kg 86.3 kg Results - Lab Results Most recent lab results Calcium 10.1 mg/dL (8.4-10.2) 05/29/17 03:00 Magnesium 1.9 mg/dL (1.6-2.3) 05/29/17 03:00 05/28/17 14:51 05/29/17 03:00 Assessment and Plan Plan: Assessment: #1. Nonoliguric acute kidney injury secondary to cardiorenal syndrome. Renal function a little improved with creatinine down to 1.5 today. #2. Hypokalemia due to diuresis. Rule out magnesium deficiency. #3. Rule out chronic kidney disease. According to the patient her baseline creatinine is near 1.6. Etiology is likely to be nephrosclerosis or diabetic kidney disease. #4. Systolic CHF with ejection fraction of less than 20%. #5. Generalized pain. Plan: Resume Bumex 3 mg orally twice daily. Check urinalysis. Check renal ultrasound. Replace potassium. 60 mEq today. Check magnesium level. Repeat electrolytes in the morning. Follow-up echocardiogram results. Thank you for the consultation. I will continue to follow the patient with you during her hospital stay.
--- NOTE | 2017-05-29 10:30 | ECHOF ---
Referral Reason:chest pain MEASUREMENTS -------- HEIGHT: 162.6 cm WEIGHT: 86.2 kg BP: 137/75 RVIDd: 2.7 cm (< 3.3) IVSd: 0.9 cm (0.6 - 1.1) LVIDd: 6.0 cm (3.9 - 5.3) LVPWd: 0.8 cm (0.6 - 1.1) IVSs: 1.0 cm LVIDs: 5.6 cm LVPWs: 0.9 cm LA Diam: 3.5 cm (2.7 - 3.8) LAESV Index (A-L): 25.47 ml/m IVSd: 3.0 cm (0.6 - 1.1) Ao Diam: 3.2 cm (2.0 - 3.7) AV Cusp: 0.6 cm (1.5 - 2.6) LA Diam: 4.1 cm (2.7 - 3.8) MV EXCURSION: 12.148 mm (> 18.000) MV EF SLOPE: 55 mm/s (70 - 150) EPSS: 1.2 cm MV E Mauricio: 1.68 m/s MV DecT: 320 ms MV A Mauricio: 1.40 m/s MV E/A Ratio: 1.19 RAP: 5.00 mmHg RVSP: 43.54 mmHg FINDINGS -------- Paced rhythm. This was a techncally difficult study with suboptimal views, , Definity utilized for enhancement of i mages. The left ventricle is moderately dilated. There is severe global hypokinesis of LV . Overall left ventricular systolic function is severely impaired with, an EF between 20 - 25 %. The right ventricle is normal in size. The right atrial size is normal. 1.5MG OF DEFINITY UTLIZED: 2 OR MORE WALL SEGMENTS NOT VISUALIZED. There is mild aortic valve sclerosis. There is no evidence of aortic regurgitation. The peak and mean MV gradients are 13.48mmHg 4.85mmHg as measured by doppler. Pt had MV Repair 2006 . Mild tricuspid regurgitation present. There is mild pulmonary hypertension. The right ventricular systolic pressure, as measured by Doppler, is 43.54mmHg. Trace/mild (physiologic) pulmonic regurgitation. The aortic root size is normal. There is no pericardial effusion. CONCLUSIONS -------- 1. This was a techncally difficult study with suboptimal views, , Definity utilized for enhancement o f images. 2. The left ventricle is moderately dilated. 3. There is severe global hypokinesis of LV . 4. Overall left ventricular systolic function is severely impaired with, an EF between 20 - 25 %. 5. 1.5MG OF DEFINITY UTLIZED: 2 OR MORE WALL SEGMENTS NOT VISUALIZED. 6. There is mild aortic valve sclerosis. 7. The peak and mean MV gradients are 13.48mmHg 4.85mmHg as measured by doppler. 8. Pt had MV Repair 2006. 9. Mild tricuspid regurgitation present. 10. There is mild pulmonary hypertension. 11. The right ventricular systolic pressure, as measured by Doppler, is 43.54mmHg. 12. Trace/mild (physiologic) pulmonic regurgitation. 13. The aortic root size is normal. 14. There is no pericardial effusion. SANDING SUPERVISOR: Priti Thomason RDCS
--- NOTE | 2017-05-29 10:35 | P.PN ---
Progress Note - Text This is an addendum to the dictated cardiology consultation. The patient has a known history of severe ischemic cardiomyopathy, status post ICD by V pacing and mitral valve surgery who presents with diffuse discomfort throughout her upper and lower body. Cardiology consultation was requested because of mild troponin elevation. The patient has no clear anginal pain but has the diffuse pain. She was admitted to the hospital in [place] about 2 months ago and at that time according to her she had a stress test that showed no evidence of ischemia and was treated medically. Her ejection fraction is less than 20% and she has been followed on a regular basis at [facility] in that regard. She has chronic dyspnea on exertion. She has occasional dizziness and she had the discharge from her device according to her about 5 months ago. On her physical examination there is no significant lung congestion or peripheral edema. Her EKG is consistent with atrial fibrillation and 100% pacing. I do not believe that the troponin elevation reflect an acute ischemic event and could be related to her renal function abnormalities. I will continue on the present therapy and we will try to obtain the results for stress test that was obtained 2 months ago. In the meantime will continue aggressive medical regimen and follow her renal function closely. Thank you for this consult we will follow with you.
[2017-05-29] MEDS ORDERED: PROMETHAZINE 25 MG TAB PO SCH (11:15)
[2017-05-29] MEDS ORDERED: ALLOPURINOL 300 MG TAB PO SCH (11:15)
[2017-05-29 11:51] LABS: Glucose,Whole Blood 273 mg/dL (75-99)
[2017-05-29] MEDS: INSULIN ASPART 100 UNIT/ML 1 ML 10 ML VIAL SQ SCH ×2 (12:19→17:37)
[2017-05-29] MEDS ORDERED: HYDROcodone/APAP 7.5-325MG 1 EACH TAB PO PRN (12:30)
[2017-05-29 16:26] VITALS: BP 117/56; PULSE 72; RESP 14; TEMP 96.6
[2017-05-29 16:45] LABS: Glucose,Whole Blood 205 mg/dL (75-99)
[2017-05-29] MEDS ORDERED: MELATONIN 5 MG TABLET PO SCH (21:00)
[2017-05-29] MEDS ORDERED: WARFARIN 5 MG TAB PO SCH (21:49)
--- NOTE | 2017-05-30 06:00 | DS ---
DISCHARGE SUMMARY DATE OF ADMISSION: 05/28/2017 DATE OF DISCHARGE: 05/29/2017 FINAL DIAGNOSES: 1. Anterior chest wall pain, could be musculoskeletal. 2. Chronic kidney disease, probably diabetic nephropathy and hypertensive nephrosclerosis, stage III. 3. Chronic congestive heart failure from ischemic cardiomyopathy, ejection fraction 20% to 25%. 4. Diabetes mellitus type 2, chronically on insulin causing peripheral neuropathy. 5. Chronic pain syndrome. 6. Gastric stimulator. 7. Permanent pacemaker with AICD. 8. Persistent atrial fibrillation with paced rhythm chronically on Coumadin. 9. Essential hypertension. 10.Hyperlipidemia. 11.Coronary artery disease, prior history of stent. 12.Anxiety, depression, not otherwise specified. HOSPITAL COURSE: This patient presented with some sharp chest pain, but actually was having pain all over the body since her methadone and Vilas were stopped. She was here and wanted to see a pain specialist. She was seen by Dr. Kunz. I do not see his formal dictation, but he prescribed the patient Vilas. The patient's creatinine was felt to be at her baseline 1.5. Seen by Dr. Montoya from nephrology. Patient's troponin was felt to be more so from her cardiac function. The patient is feeling much better today, very keen to go home. I did talk to the patient and at length about different modalities to control pain rather than just taking pain medications. ON EXAMINATION: Lungs are clear. CARDIOVASCULAR: First and second sounds normal. BUN 72, creatinine 1.50. DISCHARGE MEDICATIONS: 1. Xanax 0.5 p.o. b.i.d. 2. Aspirin 81 mg p.o. daily. 3. Flexeril 10 mg p.o. q.h.s. 4. Digoxin 125 mcg a day. 5. Humalog 30 units subcutaneous a.c. t.i.d. 6. Lantus 60 units subcutaneous q.h.s. 7. Lyrica 300 mg p.o. daily. 8. Trazodone 100 mg q.h.s. 9. Allopurinol 300 mg p.o. daily. 10.Coreg 12.5 p.o. b.i.d. 11.Cymbalta 60 mg p.o. daily. 12.Hydrochlorothiazide 25 mg p.o. daily. 13.Melatonin 30 mg q.h.s. 14.Reglan 10 mg p.o. daily p.r.n. 15.Nitrostat 0.4 sublingual q.5 p.r.n. 16.Zofran 8 mg p.o. b.i.d. p.r.n. 17.Potassium 10 mEq p.o. b.i.d. 18.Lyrica 200 mg p.o. q.h.s. 19.Aldactone 25 mg q.h.s. 20.Coumadin 2.5 mg on Saturday, Saturday, , Saturday and 5 mg Saturday, Saturday and Saturday. 21.Glucovance 5/500 one tablet p.o. daily. 22.Bumex 3 mg b.i.d. 23.Vilas 7.5 one tablet q.6 p.r.n. 24.Phenergan 25 mg q.12. Follow up with Dr. Kohli in one week; Dr. Gibbs in 3 days; Dr. Kunz in 1 week; Dr. Montoya in one week. LABS: CBC, BMP in 3 days. Discussion and discharge planning with the patient and more than 35 minutes. MMODL / IJN: [id number] /
[2017-05-30] MEDS ORDERED: SPIRONOLACTONE 25 MG TAB PO SCH (09:00)
--- NOTE | 2017-05-30 12:06 | P.CONS ---
History of Present Illness - Reason for Consult Consult date: 05/29/17 - History of Present Illness This 52 years old female with a history of severe and chronic pain, diagnosed with fibromyalgia and also peripheral neuropathy, was treated as an outpatient with methadone 10 mg daily and Wall 5/325 every 4 hours, she is to see her primary care physician Dr. Aly Fortune , and over the last weeks he discontinued giving any prescription for any pain medications, patient started having withdrawal symptoms, she is complaining of severe generalized body aches, she reported that she was always compliant with the instruction of her physician , she is admitted to [facility] because of abnormal troponin, nunez complaining of total body ache and also she is complaining of severe low back pain and severe bilateral lower extremity numbness tingling and aching and burning sensation Past Medical History Past Medical History: Atrial Fibrillation, Asthma, Coronary Artery Disease (CAD) , Chest Pain / Angina, Heart Failure, CVA/TIA, Diabetes Mellitus, Fibromyalgia, GI Bleed, Hyperlipidemia, Hypertension, Myocardial Infarction (ID), Osteoarthritis (OA), Pneumonia, Renal Disease, Respiratory Disorder, Syncope Additional Past Medical History / Comment(s): Peripheral neuropathy, chronic pain, pt. wears home O2 as needed, pt. reports having syncopal episodes in the past secondary to her pacemaker malfunctioning Last Myocardial Infarction Date:: 2006 History of Any Multi-Drug Resistant Organisms: C-DIFF Year Discovered:: 2011 MDRO Source:: STOOL Past Surgical History: AICD, Cardiac Valve Replacement, Coronary Bypass/CABG, Heart Catheterization With Stent, Pacemaker Additional Past Surgical History / Comment(s): Gastric stimulator placed, pt. states it was replaced about 2 weeks ago Past Anesthesia/Blood Transfusion Reactions: Previous Problems w/ Anesthesia Additional Past Anesthesia/Blood Transfusion Reaction / Comm: pt. states she "had a heart attack>" after receiving anesethia Date of Last Stent Placement:: 2006 Type of Cardiac Device: Permanent Pacemaker, AICD Device Placement Date:: 2013 Past Psychological History: Anxiety, Depression Smoking Status: Never smoker Past Alcohol Use History: None Reported Past Drug Use History: None Reported Medications and Allergies Home Medications Medication Instructions Recorded Confirmed Type ALPRAZolam [Xanax] 0.5 mg PO BID 12/28/13 05/28/17 History Aspirin 81 mg PO DAILY 12/28/13 05/28/17 History Cyclobenzaprine [Flexeril] 10 mg PO HS 12/28/13 05/28/17 History Digoxin [Lanoxin] 125 mcg PO DAILY 12/28/13 05/28/17 History INSULIN LISPRO (humaLOG) [humaLOG] 30 units SQ AC-TID PRN 12/28/13 05/28/17 History Insulin Glargine [Lantus] 60 unit SQ HS 12/28/13 05/28/17 History Pregabalin [Lyrica] 300 mg PO DAILY 12/28/13 05/28/17 History traZODone HCL [Desyrel] 100 mg PO HS 12/28/13 05/28/17 History Allopurinol [Zyloprim] 300 mg PO DAILY 05/28/17 05/28/17 History Carvedilol [Coreg*] 12.5 mg PO BID 05/28/17 05/28/17 History DULoxetine HCL [Cymbalta] 60 mg PO DAILY 05/28/17 05/28/17 History Hydrochlorothiazide [Hydrodiuril] 25 mg PO DAILY 05/28/17 05/28/17 History Melatonin 30 mg PO HS 05/28/17 05/28/17 History Metoclopramide [Reglan] 10 mg PO DAILY PRN 05/28/17 05/28/17 History Nitroglycerin Sl Tabs [Nitrostat] 0.4 mg SUBLINGUAL Q5M PRN 05/28/17 05/28/17 History Ondansetron HCl [Zofran] 8 mg PO BID PRN 05/28/17 05/28/17 History Potassium Chloride [K-Tab ER] 10 meq PO BID 05/28/17 05/28/17 History Pregabalin [Lyrica] 200 mg PO HS 05/28/17 05/28/17 History Spironolactone [Aldactone] 25 mg PO HS 05/28/17 05/28/17 History Warfarin [Coumadin] 2.5 mg PO SUTUTHSA 05/28/17 05/28/17 History Warfarin [Coumadin] 5 mg PO MOWEFR 05/28/17 05/28/17 History glyBURIDE/METFORMIN HCL 1 tab PO DAILY 05/28/17 05/28/17 History [Glucovance 5-500 mg Tablet] Bumetanide [BUMEX] 3 mg PO BID #180 tab 05/29/17 Rx HYDROcodone/APAP 7.5-325MG [Wall 1 each PO Q6H PRN #20 tab 05/29/17 Rx 7.5-325] Promethazine [Phenergan] 25 mg PO Q12H 05/29/17 05/29/17 History Allergies Allergy/AdvReac Type Severity Reaction Status Date / Time atorvastatin calcium Allergy Unknown Verified 05/28/17 17:58 [From Lipitor] baclofen Allergy Unknown Verified 05/28/17 17:58 gentamicin [Gentamicin] Allergy Unknown Verified 05/28/17 17:58 Physical Exam Vitals: Vital Signs Temp Pulse Resp BP Pulse Ox 05/29/17 16:26 92 L 05/29/17 16:00 96.6 F L 72 14 117/56 92 L 05/29/17 15:43 95 05/29/17 12:00 79 16 113/74 96 Social history : not smoker , NO ETOH , NO Illegal drugs use . Family history : , positive for Physical Examinations : 1-Constitutional : Cooperative , not in acute distress . 2-HEENT : nech ; supple , no Lymphadenopathy , no Thyromegaly , :eyes , no icterus, no photophobia . ENT : , normal oropharynx , no Thrush 3- Respiratory : Chest clear to auscultations Bilaterally , no wheezing . 4- Cardiovascular : regular rate and rhythem , S1 , S2 , no S3 , no S4. 5- Gastrointestinal: abdomen soft no tenderness , no organomegally . 6- Genitourinary : Defferred . 7-Integumentary : No cellulitis , no ulcers , normal skin turgor , no cyanotic . 8- neurologic : Cranial nerve II to XII intact , no focal neurological deffecit 9-psychatric : alert , oriented X 3 , appropriate affect , intact judgment and insight . 10-Lymphatic : no Lymphadenopathy. 11- musculoskeltal: normal gait Cervical Spine motor stregnth in the deltoid and biceps, normal right side , normal Left side multiple trigger point in the cervical paravertebral muscles Lumber spine moter stegnth lower extremities ,thigh and legs 4/5 Right side , 4/5 Left side Positive lallodynia ,and positive parasthesia lower extremities bilaterally Results CBC & Chem 7: 05/28/17 14:51 05/29/17 03:00 Labs: Abnormal Lab Results - Last 24 Hours (Table) 05/29/17 05/29/17 Range/Units 11:46 16:43 POC Glucose (mg/dL) 273 H 205 H (75-99) mg/dL Microbiology - Last 24 Hours (Table) 05/28/17 16:25 Blood Culture - Preliminary Blood No Growth after 24 hours Assessment and Plan Plan: Assessment and plan= chronic pain syndrome, fibromyalgia , peripheral neuropathy. Recommend increase Wall 5/325 every 4 hours to 7.5/325 every 6 hours. ReCommand continue Flexeril 10 mg daily at bedtime. Continue Lyrica 200 mg daily at bedtime and 300 mg every morning continue Cymbalta 60 mg daily and continue Flexeril 10 mg daily at bedtime Time with Patient: Less than 30
== END 2017-05-29 18:34 | disposition home or self-care (01) | DRG 313 ==
LOC: EC 10:49 → 6SEL 17:26
PROVIDERS: ADMIT Hospitalist; ATTEND Hospitalist
DX: R07.89 Other chest pain (principal); I25.10 Atherosclerotic heart disease of native coronary artery without angina pectoris; E11.22 Type 2 diabetes mellitus with diabetic chronic kidney disease; E11.42 Type 2 diabetes mellitus with diabetic polyneuropathy; N17.9 Acute kidney failure, unspecified; I48.1 Persistent atrial fibrillation; E83.42 Hypomagnesemia; N18.3 Chronic kidney disease, stage 3 (moderate); I13.0 Hypertensive heart and chronic kidney disease with heart failure and stage 1 through stage 4 chronic kidney disease, or unspecified chronic kidney disease; I50.22 Chronic systolic (congestive) heart failure; E78.5 Hyperlipidemia, unspecified; E87.6 Hypokalemia; F32.9 Major depressive disorder, single episode, unspecified; F41.9 Anxiety disorder, unspecified; G89.4 Chronic pain syndrome; I25.2 Old myocardial infarction; I25.5 Ischemic cardiomyopathy; J45.909 Unspecified asthma, uncomplicated; M79.7 Fibromyalgia; T50.2X5A Adverse effect of carbonic-anhydrase inhibitors, benzothiadiazides and other diuretics, initial encounter; M19.90 Unspecified osteoarthritis, unspecified site; R11.0 Nausea; R26.2 Difficulty in walking, not elsewhere classified; R74.8 Abnormal levels of other serum enzymes; Z79.01 Long term (current) use of anticoagulants; Z79.4 Long term (current) use of insulin; Z79.82 Long term (current) use of aspirin; Z79.899 Other long term (current) drug therapy; Z95.810 Presence of automatic (implantable) cardiac defibrillator; Z95.5 Presence of coronary angioplasty implant and graft; Z86.73 Personal history of transient ischemic attack (TIA), and cerebral infarction without residual deficits; Z95.1 Presence of aortocoronary bypass graft; Z95.2 Presence of prosthetic heart valve
CPT/HCPCS: 36415; 71046; 76770; 80048; 80053; 80061; 82550; 82553; 83605; 83735; 83880; 84484; 85025; 85610; 85730; 87040; 93005; 93306; 96374; 96376; 99284